=== PATIENT | female | born 1995 | race Two or more races ===

== ENCOUNTER 2018-01-26 17:39 | Emergency (ER) | payer SELFPAY ==
[~2018-01-26] VITALS: Ht 170.2 cm; Wt 94.3 kg
[~2018-01-26 17:39] MED LIST: PREN-96 PO
[2018-01-26 18:03] VITALS: BP 146/81
[2018-01-26] MEDS ORDERED: KETOROLAC TROMETH 30 MG/ML 1ML VIAL IV ONE (21:45)
[2018-01-26] MEDS ORDERED: SODIUM CHLORIDE 0.9% 1,000 ML IV ONE (21:45)
[2018-01-26] MEDS ORDERED: cefTRIAXone 1GM/10ml IVPUSH 10 ML IV ONE (21:45)
== END 2018-01-26 23:45 | disposition home or self-care (01) ==
LOC: ER 17:42
DX: L03.115 Cellulitis of right lower limb (principal); W57.XXXA Bitten or stung by nonvenomous insect and other nonvenomous arthropods, initial encounter; Y93.89 Activity, other specified; Y99.8 Other external cause status; Y92.89 Other specified places as the place of occurrence of the external cause; Z91.040 Latex allergy status
CPT/HCPCS: 96361; 96374; 96375; 99284; J1885; J7030

== ENCOUNTER 2019-03-05 12:24 | Emergency (ER) | payer BC, OTHER ==
[~2019-03-05] VITALS: Ht 170.2 cm; Wt 59.4 kg
[2019-03-05 13:56] LABS: Urine Bacteria FEW /hpf (None Seen); Urine Blood 2+ /uL (Negative); Urine Mucus FEW (None Seen); Urine Specific Gravity 1.027 (1.001-1.035); Urine WBC 10 /hpf (0 - 5)
[2019-03-05 15:31] LABS: Calcium 8.8 mg/dL (8.5-10.1); Potassium 4.1 mmol/L (3.5-5.1)
[2019-03-05 15:35] LABS: Bilirubin, Total 0.6 mg/dL (0.2-1.0)
[2019-03-05 16:39] VITALS: BP 120/72
[2019-03-05 17:10] LABS: Basophils # (auto) 0 uL; Basophils % (auto) 0.5 % (0.0-2.0); Eosinophils # (auto) 0.1 uL; Eosinophils % (auto) 1.6 % (0.0-7.0); Hematocrit 45.6 % (36.0-46.0); Hemoglobin 15.3 g/dL (12.2-16.2); Lymphocytes # (auto) 1.5 uL; Lymphocytes % (auto) 19.1 % (10.0-50.0); Mean Corpuscular Hemoglobin 29.7 pg (28.0-32.0); Mean Corpuscular Hgb Conc. 33.7 g/dL (32.0-36.0); Mean Corpuscular Volume 88.2 fL (80.0-100.0); Monocytes # (auto) 0.4 uL; Monocytes % (auto) 5.5 % (0.0-12.0); Neutrophils # (auto) 5.7 uL; Neutrophils % (auto) 73.3 % (37.0-80.0); Nucleated Red Blood Cells % 0.1 %; Platelet Count (auto) 260 10^3/uL (140-450); Red Blood Cells 5.17 10^6/uL (4.0-5.20); Red Cell Distribution Width 13.9 % (11.8-14.3); White Blood Cell 7.8 10^3/uL (4.4-10.8)
== END 2019-03-05 17:02 | disposition home or self-care (01) ==
LOC: ER 12:24
DX: N93.9 Abnormal uterine and vaginal bleeding, unspecified (principal)
CPT/HCPCS: 36415; 80053; 81001; 84702; 85025